=== PATIENT | female | born 1995 | race Caucasian/White ===

== ENCOUNTER 2018-04-27 05:59 | Outpatient (CLI) | payer OTHER ==
[~2018-04-27] VITALS: Ht 157.5 cm; Wt 79.4 kg
[~2018-04-27 05:59] MED LIST: OMEP20CA12 PO; ONDA4TAB8 SL; POLY119P5 PO
[2018-04-29] MEDS ORDERED: ACHD5005 PO (13:09)
== END 2018-04-27 11:15 | disposition home or self-care (01) ==
LOC: PREOP 05:59
PROVIDERS: ATTEND Surgery
DX: Z01.818 Encounter for other preprocedural examination (principal)

== ENCOUNTER 2018-04-29 10:07 | Day surgery (SDC) | payer OTHER ==
[2018-04-29] VITALS (7 sets, daily range): BP systolic 109–141; BP diastolic 77–96
[~2018-04-29] VITALS: Ht 157.5 cm; Wt 79.4 kg
[2018-04-29] MEDS: LACTATED RINGERS 1,000 ML IV PRN ×2 (10:30→12:39)
[2018-04-29] MEDS ORDERED: ceFAZolin 2 GM IV Premixed 50 ML IV ONE (10:30)
[2018-04-29] MEDS ORDERED: CATHETER FLUSH 10 ML SYR IV PRN (10:45)
--- NOTE | 2018-04-29 10:49 | Progress Note-Pre Operative ---
Pre-Operative Progress Note H&P Reviewed The H&P was reviewed, patient examined and no changes noted. Time Seen by Provider: 10:46 Date H&P Reviewed: Apr 29, 2018 Time H&P Reviewed: 10:47 Pre-Operative Diagnosis: Cholelithiasis/Cholecystitis MAGNO WILLIAM DO Apr 29, 2018 10:49
[2018-04-29] MEDS ORDERED: LIDOCAINE PF 2% 5 ML (XYLOCAINE) VIAL ONE (11:09)
[2018-04-29] MEDS ORDERED: DEXAMETHASONE 10 MG/ML (DECADRON) 1 ML VIAL ONE (11:09)
[2018-04-29] MEDS ORDERED: proPOfol 200 MG/20 ML (DIPRIVAN) VIAL IV ONE (11:09)
[2018-04-29] MEDS ORDERED: ONDANSETRON 4 MG/2 ML (SDV) Z0FRAN ONE ×2 (11:09→13:23)
[2018-04-29] MEDS ORDERED: fentaNYL INJECTION 100 MCG/2 ML AMP ONE (11:09)
[2018-04-29] MEDS ORDERED: SEVOFLURANE (ULTANE) 15 ML INHAL SOLN ONE ×3 (11:09→13:04)
[2018-04-29] MEDS ORDERED: ROCURONIUM 10 MG/ML 5 ML SYRINGE IV ONE (11:10)
[2018-04-29] MEDS ORDERED: MIDAZOLAM 2 MG/2 ML (VERSED) VIAL ONE (11:10)
[2018-04-29] MEDS ORDERED: LIDOCAINE/EPI 1%-1:200,000 (XYLOCAINE) 10 ML VIAL ONE (11:21)
[2018-04-29] MEDS ORDERED: NEOSTIGMINE 1 MG/ML 5 ML SYRINGE ONE (13:01)
[2018-04-29] MEDS ORDERED: GLYCOPYRROLATE 0.2 MG/ML (ROBINUL) 2 ML VIAL ONE (13:01)
[2018-04-29] MEDS ORDERED: ACHD5005 PO (13:09)
--- NOTE | 2018-04-29 13:09 | Progress Note-Post Operative ---
Post-Operative Progess Note Surgeon (s)/Corporate Treasury Analyst (s) Surgeon MAGNO WILLIAM DO Corporate Treasury Analyst: [place] Pre-Operative Diagnosis Cholelithiasis/Cholecystitis Post-Operative Diagnosis Same Procedure & Operative Findings Date of Procedure 04/29/18 Procedure Performed/Findings Lap yeni with IOC Anesthesia Type GET Estimated Blood Loss Estimated blood loss (mL): scant Specimens/Packing Specimens Removed GB and contents MAGNO WILLIAM DO Apr 29, 2018 13:09
--- NOTE | 2018-04-29 13:11 | Discharge Inst-Surgical ---
Discharge Inst-Surgical Depart Medication/Instructions New, Converted or Re-Newed RX: RX Given to Pt/Family Patient Instructions Follow up Appt: Make appointment for 1 week. Instructions: No lifting greater than 10 pounds. No strenuous activity. May shower in 24 hours, no tub bath or soaking. Use incentive spirometer at home as directed. No Smoking Skin/Wound Care: May remove bandages in am. You need to leave the Dermabond on over incision it will fall off on its own. Symptoms to Report: Appetite Changes, Extremity Discoloration, Numbness/Tingling, Swelling Increased , Bleeding Excessive, Eyesight Changes, Pain Increased, Urine Color Change, Constipation(Persistent), Fever over 101 degree F, Pain/Pressure in chest, Urinating Difficulty, Cough Up/Vomit Blood, Heart Beat Irreg/Pounding, Pain/ Pressure in jaw, Vaginal Bleeding Increase, Cramps in feet or legs, Lightheadedness, Pain/Pressure in shoulder, Diarrhea(Persistent), Memory Changes Suddenly, Questions/Concerns, Weight gain consecutive days, Dizziness/ Fainting, Nausea/Vomiting, Shortness of Breath, Weight gain over 2 pounds If questions or concerns contact your physician Or seek help at emergency department. Activity Activity as Tolerated: Yes Activity Instructions: Avoid Stress to Incision Driving Instructions: No Driving/Refer to Diet Discharge Diet: Avoid Fatty Foods, Low Fat/Low Cholesterol Diet After 24 Hours: Clear Liquid if Nauseous If Any Problems/Questions/Issu: Contact Your Physician, Go to Emergency Room Skin/Wound Care Infection Signs and Symptoms: Increased Redness, Foul Odor of Wound, Increased Drainage, Skin Itchy or Has a Rash, Increased Swelling, Temperature Above 101 F Wound Care Comment: heating pad to shoulder or neck for pain tonight Bathing Instructions: Shower Stitches/Aki/Dermabond Dis: Dermabond Ice Pack: Ice On and Off Site (as needed for pain) MAGNO WILLIAM DO Apr 29, 2018 13:11
[2018-04-29] MEDS ORDERED: morphine INJ 10 MG/ML 1ML (SYR OR VIAL) ONE (13:23)
[2018-04-29] MEDS ORDERED: HYDROmorphone 2 MG/ML VIAL (DILAUDID) IV ONE (13:30)
[2018-04-29] MEDS ORDERED: ONDANSETRON 4 MG/2 ML (SDV) Z0FRAN IVP PRN (13:30)
[2018-04-29] MEDS ORDERED: morphine INJ 10 MG/ML 1ML (SYR OR VIAL) IVP ONE (13:30)
[2018-04-29] MEDS ORDERED: MEPERIDINE (DEMEROL) INJ 50 MG/ML ONE (13:51)
[2018-04-29] MEDS ORDERED: MEPERIDINE (DEMEROL) INJ 50 MG/ML IVP PRN (14:00)
--- NOTE | 2018-04-29 14:22 | Anesthesia-General Post-Op ---
General Patient Condition Mental Status/LOC: Same as Preop Cardiovascular: Satisfactory Nausea/Vomiting: Absent Respiratory: Satisfactory Pain: Controlled Complications: Absent Post Op Complications Complications None Follow Up Care/Instructions Patient Instructions None needed. Anesthesia/Patient Condition Patient Condition Patient is doing well, no complaints, stable vital signs, no apparent adverse anesthesia problems. No complications reported per nursing. D/C home per [facility] [place] [facility] [place] Criteria: Yes KILLIAN ROSS CRNA Apr 29, 2018 14:22
--- OUTSIDE RECORDS SUMMARY | 2018-04-29 14:40 | XMS REPORT | Continuity of Care Document ---
Author Author [facility] Address Unknown Phone Unavailable Allergies Active Description Code Type Severity Reaction Onset Reported/Identified Relationship to Patient Clinical Status Yes No Known Drug Allergies [id number] Drug Allergy Unknown N/A 04/12/2018 Medications There is no data. Problems Date Dx Coded Attending Type Code Diagnosis Diagnosed By 05/19/2012 DAI GONZALEZ MD 477.0 ALLERGIC RHINITIS - POLLEN 05/19/2012 DAI GONZALEZ MD 796.2 Blood Pressure Isolated Elevated 05/19/2012 DAI GONZALEZ MD 477.0 ALLERGIC RHINITIS - POLLEN 05/19/2012 DAI GONZALEZ MD 796.2 Blood Pressure Isolated Elevated 05/19/2012 SHAWNEE MORTON DO 477.0 ALLERGIC RHINITIS - POLLEN 05/19/2012 SHAWNEE MORTON DO 796.2 Blood Pressure Isolated Elevated 05/19/2012 DAI GONZALEZ MD 477.0 ALLERGIC RHINITIS - POLLEN 05/19/2012 DAI GONZALEZ MD 796.2 Blood Pressure Isolated Elevated 05/19/2012 DAI GONZALEZ MD 477.0 ALLERGIC RHINITIS - POLLEN 05/19/2012 DAI GONZALEZ MD 796.2 Blood Pressure Isolated Elevated 05/19/2012 LISSETH VILLA APRN 477.0 ALLERGIC RHINITIS - POLLEN 05/19/2012 LISSETH VILLA APRN 796.2 Blood Pressure Isolated Elevated 07/24/2012 DAI GONZALEZ MD V20.2 WELL CHILD 07/24/2012 DAI GONZALEZ MD V20.2 WELL CHILD 07/24/2012 SHAWNEE MORTON DO V20.2 WELL CHILD 07/24/2012 DAI GONZALEZ MD V20.2 WELL CHILD 07/24/2012 DAI GONZALEZ MD V20.2 WELL CHILD 07/24/2012 LISSETH VILLA APRN L V20.2 WELL CHILD 03/26/2013 DAI GONZALEZ MD 461.9 SINUSITIS ACUTE 03/26/2013 DAI GONZALEZ MD 461.9 SINUSITIS ACUTE 03/26/2013 SHAWNEE MORTON DO K 461.9 SINUSITIS ACUTE 03/26/2013 DAI GONZALEZ MD 461.9 SINUSITIS ACUTE 03/26/2013 DAI GONZALEZ MD 461.9 SINUSITIS ACUTE 05/17/2013 DAI GONZALEZ MD 133.0 SCABIES 05/17/2013 DAI GONZALEZ MD 133.0 SCABIES 05/17/2013 SHAWNEE MORTON DO 133.0 SCABIES 05/17/2013 DAI GONZALEZ MD 133.0 SCABIES 05/17/2013 DAI GONZALEZ MD 133.0 SCABIES 06/29/2013 DAI GONZALEZ MD 465.9 UPPER RESPIRATORY INFECTION 06/29/2013 SHAWNEE MORTON DO K 465.9 UPPER RESPIRATORY INFECTION 06/29/2013 DAI GONZALEZ MD 465.9 UPPER RESPIRATORY INFECTION 06/29/2013 DAI GONZALEZ MD 465.9 UPPER RESPIRATORY INFECTION 03/21/2014 SHAWNEE MORTON DO K 564.00 UNSPECIFIED CONSTIPATION 03/21/2014 SHAWNEE MORTON DO K 626.4 IRREGULAR MENSTRUAL CYCLE 03/21/2014 SHAWNEE MORTON DO K V65.45 STD COUNSELING 03/21/2014 DAI GONZALEZ MD 564.00 UNSPECIFIED CONSTIPATION 03/21/2014 DAI GONZALEZ MD 626.4 IRREGULAR MENSTRUAL CYCLE 03/21/2014 DAI GONZALEZ MD V65.45 STD COUNSELING 03/21/2014 DAI GONZALEZ MD 564.00 UNSPECIFIED CONSTIPATION 03/21/2014 DAI GONZALEZ MD 626.4 IRREGULAR MENSTRUAL CYCLE 03/21/2014 DAI GONZALEZ MD V65.45 STD COUNSELING 05/12/2014 DAI GONZALEZ MD 462 PHARYNGITIS 05/12/2014 DAI GONZALEZ MD 462 PHARYNGITIS 05/17/2014 DAI GONZALEZ MD 784.91 Postnasal Drip Procedures Code Description [place] [address] TEST, URINE (IN- HOUSE) 03/21/2014 12335 TRICHOMONAS (IN-HOUSE) 03/21/2014 76617 GC/CHLAM PROBE (STATE) 03/21/2014 54306 STREP A (IN-HOUSE) 05/12/2014 Results There is no data. Encounters ACCT No. Visit Date/Time Discharge Status Pt. Type Provider Facility Loc./Unit Complaint [id number] 05/17/2014 15:29:00 05/17/2014 23:59:59 CLS Outpatient DAI GONZALEZ MD [id number] 05/12/2014 13:40:00 05/12/2014 23:59:59 CLS Outpatient DAI GONZALEZ MD [id number] 03/21/2014 17:05:00 03/21/2014 23:59:59 CLS Outpatient SHAWNEE MORTON DO [id number] 06/29/2013 16:15:00 06/29/2013 23:59:59 CLS Outpatient DAI GONZALEZ MD [id number] 05/17/2013 15:35:00 05/17/2013 23:59:59 [place] [id number] 07/24/2012 09:29:00 07/24/2012 23:59:59 CLS Outpatient LISSETH VILLA APRN [id number] 09/26/2017 14:20:00 09/26/2017 23:59:59 CLS Outpatient HENRIQUE GHOTRA [facility] [id number] 04/12/2018 08:55:00 04/12/2018 11:55:00 DIS Emergency ROSANGELA WAGONER, TAN Rivera [facility] ER JOLLEY,ABD PAIN
--- NOTE | 2018-04-29 19:06 | Diagnostic Imaging Report ---
INDICATION: Fluoroscopy for intraoperative cholangiogram. EXAMINATION: Fluoroscopy was provided in the OR during intraoperative cholangiogram. 6 seconds of fluoroscopy was utilized. FINDINGS: Images demonstrate injection of contrast via the cystic duct remnant. Intrahepatic and extrahepatic bile ducts are not dilated. There is free flow of contrast into the duodenum. No filling defects are seen. IMPRESSION: Fluoroscopy for intraoperative cholangiogram. Dictated by: Dictated on workstation # [id number]
--- NOTE | 2018-04-30 02:55 | OPERATIVE REPORT ---
DATE OF SERVICE: 04/29/2018 PREOPERATIVE DIAGNOSES: Cholelithiasis, cholecystitis. POSTOPERATIVE DIAGNOSES: Cholelithiasis, cholecystitis. PROCEDURE: Laparoscopic cholecystectomy, intraoperative cholangiogram. SURGEON: Horacio Arriola DO. FINANCIAL ASSOCIATE: Peter Jacques DO. ANESTHESIA: General endotracheal tube. SPECIMEN: Gallbladder and contents. BLOOD LOSS: Scant. FLUIDS: Per anesthesia. POSTOPERATIVE CONDITION: Stable. INDICATION FOR PROCEDURE: The patient is a 23-year-old female who has been having right upper quadrant pain associated with fried and fatty foods and had ultrasound which showed stones, signs indicating cholecystitis. FINDINGS: The patient had some minimal adhesions to the lower portion of the gallbladder. No other obvious pathology. PROCEDURE NOTE: After informed consent was obtained, the patient was brought to the operating room, placed on the table in supine position. She was then sterilely prepped and draped in normal fashion. Local lidocaine was used to infiltrate the skin above the umbilicus. I then made an incision with #11 blade, carried down through the skin into the subcutaneous tissue, then deepened down to subcutaneous tissue with Bovie electrocautery down to the fascia. Fascia incised with Bovie electrocautery. Bluntly entered the abdomen, swept the finger around, placed 0 Vicryl [id number] suture, then placed an 11 mm trocar port under direct visualization, created pneumoperitoneum and then placed 3 more ports in normal fashion using local lidocaine, 11-blade for stab incision and VersaStep system, all done under direct visualization, one in subxiphoid and two in right upper quadrant. The patient then placed in reverse Trendelenburg and rotated to left, able to visualize the gallbladder, grasped at the fundus and taken in superior direction, then grasped down the Cecille's pouch and pulled in inferolateral direction, started dissecting out the cystic duct and cystic artery. I was able to get around the cystic duct down the cystic artery. Placed 1 clip distally on the cystic duct and one distally and two proximally on the cystic artery. Cut the cystic duct fpc through Metzenbaum scissors. Placed cholangiogram catheter and shot a cholangiogram. Good spillage of dye down the common bile duct into the small intestine as well as up in the common hepatic and right and left hepatics. Removed the cholangiogram catheter, placed 2 clips proximally on the cystic duct and cut the cystic duct and cystic artery with Metzenbaum scissors. Removed the gallbladder from bed of liver with L-hook cautery. Did get into the gallbladder with some spillage of bile. Once this was completely removed, I then placed a bag in the abdomen, placed the gallbladder in the bag and then removed through the supraumbilical incision. Placed the port back into the abdomen, copiously irrigated with normal saline, suctioned this out. There was no bleeding in the bed of liver, irrigated some more and suctioned this out. I then placed the patient supine, removed all ports under direct visualization, allowed pneumoperitoneum to escape. Closed the supraumbilical incision, closing the fascia with 0 Vicryl suture previously placed. Copiously irrigated all incisions with normal saline, closing the 3 small 5 mm incisions with a single interrupted 4-0 undyed Monocryl subcuticular stitch. Closed the supraumbilical incision with 3 interrupted 4-0 undyed Monocryl subcuticular stitches. Area was cleaned and dried and Dermabond placed as well as Band-Aids. The patient was then transferred to recovery room in stable condition. Sponge, instrument and needle count correct at the end of the case. Dr. Jacques assisted in this case helping to make incisions, closed the incisions, hold the anatomy out of the way and identified anatomy. Job ID: [id number] DocumentID: [id number] Dictated Date: 04/30/2018 00:45:53 Harness Placer Date: 04/30/2018 02:55:06 Dictated By: DO ELVIRA DOHERTY
== END 2018-04-29 17:55 | disposition home or self-care (01) ==
LOC: SDC 10:07
PROVIDERS: ATTEND Surgery
DX: K80.10 Calculus of gallbladder with chronic cholecystitis without obstruction (principal); K21.9 Gastro-esophageal reflux disease without esophagitis
CPT/HCPCS: 84703; 87081; 88304; 94664

== ENCOUNTER 2018-05-05 21:29 | Emergency (ER) | payer OTHER ==
[~2018-05-05] VITALS: Ht 157.5 cm; Wt 79.4 kg
[~2018-05-05 21:29] MED LIST changes: +ACHD5005 PO
--- OUTSIDE RECORDS SUMMARY | 2018-05-05 21:34 | XMS REPORT | Continuity of Care Document ---
Author Author [facility] Address Unknown Phone Unavailable Allergies Active Description Code Type Severity Reaction Onset Reported/Identified Relationship to Patient Clinical Status Yes No Known Drug Allergies [id number] Drug Allergy Unknown N/A 04/12/2018 Medications There [...] MD 133.0 SCABIES 05/17/2013 SHAWNEE MORTON DO K 133.0 SCABIES 05/17/2013 DAI GONZALEZ MD 133.0 [...] DO K 626.4 IRREGULAR MENSTRUAL CYCLE 03/21/2014 LINDA MORTON DOA K V65.45 STD COUNSELING 03/21/2014 DAI GONZALEZ [...] 05/17/2014 DAI GONZALEZ MD 784.91 Postnasal Drip 04/12/2018 ROSANGELA WAGONER, TAN Rivera Ot K59.00 CONSTIPATION, UNSPECIFIED 04/12/2018 TAN ADAMES MD Ot K80.20 CALCULUS OF GALLBLADDER W/O CHOLECYSTITI 04/12/2018 TAN ADAMES MD Ot R10.84 GENERALIZED ABDOMINAL PAIN 04/12/2018 TAN ADAMES MD, Ot R11.2 NAUSEA WITH VOMITING, UNSPECIFIED 04/12/2018 TAN ADAMES MD Ot R51 HEADACHE 04/27/2018 MAGNO WILLIAM DO, Ot Z01.818 ENCOUNTER FOR OTHER PREPROCEDURAL EXAMIN 04/29/2018 MAGNO WILLIAM DO Ot K21.9 GASTRO-ESOPHAGEAL REFLUX DISEASE WITHOUT 04/29/2018 MAGNO WILLIAM DO Ot K80.10 CALCULUS OF GALLBLADDER W CHRONIC CHOLEC 05/05/2018 MAGNO WILLIAM DO, Ot K21.9 GASTRO-ESOPHAGEAL REFLUX DISEASE WITHOUT 05/05/2018 MAGNO WILLIAM DO Ot K80.10 CALCULUS OF GALLBLADDER W CHRONIC CHOLEC Procedures Code Description [place] [address] TEST, URINE (IN- HOUSE) 03/21/2014 49011 TRICHOMONAS (IN-HOUSE) 03/21/2014 82239 GC/CHLAM PROBE ([facility]) 03/21/2014 21777 STREP A (IN-HOUSE) 05/12/2014 Results Test Result Range Urine beta human chorionic gonadotropin (hCG) measurement - 04/29/18 10:15 Urine beta human chorionic gonadotropin (hCG) measurement NEGATIVE NEGATIVE Methicillin resistant Staphylococcus aureus (MRSA) screening culture - 10:20 Methicillin resistant Staphylococcus aureus (MRSA) screening culture NEG NRG Encounters ACCT No. Visit Date/Time Discharge Status Pt. Type Provider Facility Loc./Unit Complaint [id number] 05/17/2014 15:29:00 05/17/2014 23:59:59 CLS Outpatient DAI GONZALEZ MD [id number] 05/12/2014 13:40:00 05/12/2014 23:59:59 CLS Outpatient DAI GONZALEZ MD [id number] 03/21/2014 17:05:00 03/21/2014 23:59:59 CLS Outpatient SHAWNEE MORTON DO [id number] 06/29/2013 16:15:00 06/29/2013 23:59:59 CLS Outpatient DAI GONZALEZ MD [id number] 05/17/2013 15:35:00 05/17/2013 23:59:59 CLS Outpatient CARLOS WAGONER, DAI Villa [id number] 07/24/2012 09:29:00 07/24/2012 23:59:59 CLS Outpatient LISSETH VILLA APRN oRlan [id number] 09/26/2017 14:20:00 09/26/2017 23:59:59 CLS Outpatient HENRIQUE GHOTRA [facility] [id number] 04/27/2018 05:59:00 04/27/2018 11:15:00 DIS Outpatient MAGNO WILLIAM DO [facility] PREOP GALLSTONES [id number] 04/12/2018 08:55:00 04/12/2018 11:55:00 DIS Emergency ROSANGELA WAGONER, TAN Rivera [facility] ER JOLLEY,ABD PAIN [id number] 05/05/2018 21:31:00 ACT Emergency WILMER JOE DO [facility] ER HARD TIME BREATHING, SHARP PAIN UNDER BREAST [id number] 04/29/2018 12:00:00 PEN Preadmit MAGNO WILLIAM DO [facility] SDC GALLSTONES
[2018-05-05 22:03] LABS: BASOPHILS % (AUTO) 0 % (0-10); EOSINOPHILS # (AUTO) 0.1 10^3/uL (0.0-0.3); EOSINOPHILS % (AUTO) 1 % (0-10); HEMATOCRIT 40 % (35-52); HEMOGLOBIN 14.2 G/DL (11.5-16.0); LYMPHOCYTES # (AUTO) 2.8 X 10^3 (1.0-4.0); LYMPHOCYTES % (AUTO) 26 % (12-44); MEAN CORPUSCULAR HEMOGLOBIN 32 PG (25-34); MEAN CORPUSCULAR HGB CONC 36 G/DL (32-36); MEAN CORPUSCULAR VOLUME 89 FL (80-99); MEAN PLATELET VOLUME 9.8 FL (7.4-10.4); MONOCYTES # (AUTO) 0.7 X 10^3 (0.0-1.0); MONOCYTES % (AUTO) 6 % (0-12); NEUTROPHILS % (AUTO) 66 % (42-75); PLATELET COUNT 435 10^3/uL (130-400); RED BLOOD COUNT 4.47 10^6/uL (4.35-5.85); RED CELL DISTRIBUTION WIDTH 11.6 % (10.0-14.5); WHITE BLOOD COUNT 10.5 10^3/uL (4.3-11.0)
[2018-05-05 22:22] LABS: ALANINE AMINOTRANSFERASE 75 U/L (0-55); ALBUMIN 4.5 GM/DL (3.2-4.5); ALKALINE PHOSPHATASE 99 U/L (40-136); AMYLASE 26 U/L (25-125); BILIRUBIN,TOTAL 0.8 MG/DL (0.1-1.0); BUN/CREATININE RATIO 9; CARBON DIOXIDE 19 MMOL/L (21-32); CHLORIDE 104 MMOL/L (98-107); CREATININE SERUM 0.74 MG/DL (0.60-1.30); GFR ESTIMATED > 60; GLUCOSE 100 MG/DL (70-105); LIPASE 21 U/L (8-78); MAGNESIUM 2.3 MG/DL (1.8-2.4); POTASSIUM 3.8 MMOL/L (3.6-5.0); SODIUM 136 MMOL/L (135-145); TOTAL PROTEIN 7.6 GM/DL (6.4-8.2)
[2018-05-05 22:31] LABS: MYOGLOBIN SERUM 22.4 NG/ML (10.0-92.0)
[2018-05-05 22:39] LABS: BILIRUBIN,URINE NEGATIVE (NEGATIVE); CLARITY,URINE CLEAR; COLOR,URINE YELLOW; GLUCOSE, URINE (UA) NEGATIVE (NEGATIVE); KETONES,URINE NEGATIVE (NEGATIVE); LEUKOCYTE ESTERASE ,URINE NEGATIVE (NEGATIVE); NITRITE,URINE NEGATIVE (NEGATIVE); PH,URINE 7 (5-9); PROTEIN,URINE NEGATIVE (NEGATIVE); UROBILINOGEN,URINE NORMAL (NORMAL)
[2018-05-05 22:50] LABS: BACTERIA,URINE MODERATE /HPF; RBC,URINE RARE /HPF
[2018-05-05] MEDS ORDERED: IOHEXOL 350 MG/ML 100 ML (OMNIPAQUE 350) VIAL IV ONE (23:00)
[2018-05-05] MEDS ORDERED: NS 100 ML (IVPB) BAG IV ONE (23:00)
[2018-05-05 23:06] LABS: AMPHETAMINE SCREEN, URINE NEGATIVE (NEGATIVE); BARBITURATE SCREEN URINE NEGATIVE (NEGATIVE); BENZODIAZEPINES SCREEN URINE NEGATIVE (NEGATIVE); CANNABINOID SCREEN, URINE NEGATIVE (NEGATIVE); COCAINE SCREEN URINE NEGATIVE (NEGATIVE); METHADONE STAT NEGATIVE (NEGATIVE); METHAMPHETAMINE SCREEN URINE S NEGATIVE (NEGATIVE); OPIATE SCREEN URINE POSITIVE (NEGATIVE); OXYCODONE STAT NEGATIVE (NEGATIVE); PROPOXYPHENE STAT NEGATIVE (NEGATIVE); TRICYCLIC ANTIDEPRESSANTS SCRE NEGATIVE (NEGATIVE)
[2018-05-05] MEDS ORDERED: KETOROLAC 30 MG/ML VIAL IVP STA (23:51)
[2018-05-05] MEDS ORDERED: CEFD300C3 PO (23:55)
--- NOTE | 2018-05-05 23:56 | ED General ---
General Chief Complaint: Respiratory Problems Stated Complaint: HARD TIME BREATHING, SHARP PAIN UNDER BREAST Nursing Triage Note: Patient ambulatory to ER, CAOx 4, complaining of pain to under right breast while taking a deep breath and shortness of breath. Patient states she had her gallbladder removed by Dr. Arriola on and has been having the pain ever since . Pain is intermittent. Surgical incisions have no redness present and no drainage and appear to be healing appropriately. Nursing Sepsis Screen: No Definite Risk Source of Information: Patient (SOMEWHAT LIMITED HISTORIAN, SEEMS SOMEWHAT LIMITED INTELLECT AND TALKS "BABY TALK" ) History of Present Illness Date Seen by Provider: May 05, 2018 Time Seen by Provider: 21:50 Initial Comments PT ARRIVES VIA POV FROM HOME C/O RUQ PAIN STATES IT HURTS TO TAKE A DEEP BREATH--STATES "CAN'T BREATHE OK" PT HAD LAP CHOLECYSTECTOMY BY DR. ARRIOLA ON Thursday04/29/18 PT STATES SHE HAS HAD THIS PAIN SINCE SHE WOKE UP FROM SURGERY, THEN LATER STATES SHE WENT HOME AFTER SURGERY, AND WENT TO SLEEP AND WOKE UP THE NEXT DAY AND HAD THIS PAIN PT STATES PAIN COMES AND GOES AND THINKS IT'S GETTING BETTER PT STATES "WHEN THE PAIN COMES I BREATHE THROUGH IT, BUT THIS TIME I COULDN'T TAKE A DEEP BREATH ALL THE WAY" --WAS SOMETIME TODAY, CANNOT STATE WHEN THIS WAS. IS NOT OCCURRING NOW PT STATES SHE HAS RAN OUT OF HER PAIN MEDICATION YESTERDAY, AND STATES IT DID NOT HELP AT ALL C/O MILD NAUSEA,, NO VOMITING NO FEVER NO URINARY SYMPTOMS STATES SHE IS EATING A LITTLE--LAST FOOD INTAKE WAS AT 1500 TODAY WHEN SHE ATE A HOT POCKET SANDWICH AND HAD SOUP. STATES SHE IS DRINKING WELL AND VOIDING A NORMAL AMOUNT LMP 04/06/18. NORMAL. STATES SHE USUALLY SKIPS A MONTH. NO CONTROL DR. ARRIOLA CALLED PRIOR TO PT'S ARRIVAL AND INFORMED THAT PT WOULD BE COMING TO ER FOR EVALUATION. PCP: [facility] SURGEON: DR. ARRIOLA Allergies and Home Medications Allergies Coded Allergies: No Known Drug Allergies (Unverified , 04/12/18) Home Medications Cefdinir 300 Mg Capsule, 300 MG PO BID Prescribed by: WILMER JOE on 05/05/18 2325 Hydrocodone Bit/Acetaminophen 1 Tab Tab, 1 TAB PO Q6H PRN Prescribed by: MAGNO ARRIOLA on 04/29/18 1309 Omeprazole 20 Mg Capsule.dr, 20 MG PO DAILY Prescribed by: TAN FRYE on 04/12/18 1140 Patient Home Medication List Home Medication List Reviewed: Yes Review of Systems Review of Systems Constitutional: no symptoms reported; No chills, No diaphoresis, No fever Respiratory: see HPI; No cough, No short of breath Cardiovascular: see HPI (PAIN TO RIGHT LOWER RIB AREA--AT SITE OF SURGERY) Gastrointestinal: see HPI, abdominal pain; No constipation, No diarrhea, No nausea, No vomiting Genitourinary: no symptoms reported Past Zzrqmbo-Mntice-Tkhxnj Hx Patient Social History Alcohol Use: Denies Use Recreational Drug Use: No Smoking Status: Never a Smoker 2nd Hand Smoke Exposure: No Recent Foreign Travel: No Contact w/Someone Who Travel: No Recent Infectious Disease Expo: No Recent Hopitalizations: Yes (gallbladder removed on 04/28/18) Physical Abuse: No Sexual Abuse: No Mistreated: No Fear: No Immunizations Up To Date PED Vaccines UTD: Yes Seasonal Allergies Seasonal Allergies: No Past Medical History Surgeries: Yes Gallbladder Respiratory: No Cardiac: No Neurological: No Last Menstrual Period: Apr 15, 2018 Genitourinary: No Gastrointestinal: No Gall Bladder Disease Musculoskeletal: No Endocrine: No HEENT: No Cancer: No Psychosocial: No Integumentary: No Physical Exam Vital Signs Vital Signs - First Documented 05/05/18 05/06/18 21:40 01:35 Temp 98.5 Pulse 114 Resp 19 B/P (MAP) 133/87 (102) Pulse Ox 100 O2 Delivery Room Air Capillary Refill : Less Than 3 Seconds Height, Weight, BMI Height: 5'2.00" Weight: 175lbs. 0.0oz. 79.411862os; 32.0 BMI Method:Stated General Appearance: No Apparent Distress HEENT: No Scleral Icterus (L), No Scleral Icterus (R); Other (ORAL MUCOSA MOIST ) Neck: Normal Inspection Respiratory: Normal Breath Sounds, No Accessory Muscle Use, No Respiratory Distress, Other (RIGHT LOWER ANTERIOR RIBS VERY TENDER TO PALPATION--REPRODUCES PAIN ) Cardiovascular: Regular Rate, Rhythm, No Edema, No JVD, No Murmur, Normal Peripheral Pulses Gastrointestinal: Normal Bowel Sounds, No Organomegaly, No Pulsatile Mass, Soft , Tenderness (HAS DIFFUSE TENDERNESS, BUT IS MOST TENDER IN RUQ IN AREA OF SURGERY. SURGICAL INCISIONS ARE ALL CLEAN/DRY/INTACT WITH WOUND ADHESIVE INTACT. NO SIGNS OF INFECTION) Back: Normal Inspection, No CVA Tenderness Extremity: Normal Capillary Refill, Normal Inspection, Normal Range of Motion, Non Tender, No Calf Tenderness, No Pedal Edema Neurologic/Psychiatric: Alert, Oriented x3, No Motor/Sensory Deficits, provisioning analyst II- XII Norm as Tested Skin: Normal Color, Warm/Dry Progress/Results/Core Measures Suspected Sepsis Recent Fever Within 48 Hours: No Infection Criteria Present: None New/Unexplained Altered Menta: No Sepsis Screen: No Definite Risk SIRS Temperature:98.5 Pulse: 114 Respiratory Rate: Laboratory Tests 05/05/18 21:52: White Blood Count 10.5 Blood Pressure 133 /87 Mean: 102 Laboratory Tests 05/05/18 21:52: Creatinine 0.74, INR Comment 1.0, Platelet Count 435H, Total Bilirubin 0.8 Results/Orders Lab Results Laboratory Tests Test 05/05/18 21:52 05/05/18 22:20 Range/Units White Blood Count 10.5 4.3-11.0 10^3/uL Red Blood Count 4.47 4.35-5.85 10^6/uL Hemoglobin 14.2 11.5-16.0 G/DL Hematocrit 40 35-52 % Mean Corpuscular Volume 89 80-99 FL Mean Corpuscular Hemoglobin 32 25-34 PG Mean Corpuscular Hemoglobin Concent 36 32-36 G/DL Red Cell Distribution Width 11.6 10.0-14.5 % Platelet Count 435 H 130-400 10^3/uL Mean Platelet Volume 9.8 7.4-10.4 FL Neutrophils (%) (Auto) 66 42-75 % Lymphocytes (%) (Auto) 26 12-44 % Monocytes (%) (Auto) 6 0-12 % Eosinophils (%) (Auto) 1 0-10 % Basophils (%) (Auto) 0 0-10 % Neutrophils # (Auto) 7.0 1.8-7.8 X 10^3 Lymphocytes # (Auto) 2.8 1.0-4.0 X 10^3 Monocytes # (Auto) 0.7 0.0-1.0 X 10^3 Eosinophils # (Auto) 0.1 0.0-0.3 10^3/uL Basophils # (Auto) 0.0 0.0-0.1 10^3/uL Prothrombin Time 13.0 12.2-14.7 SEC INR Comment 1.0 0.8-1.4 Activated Partial Thromboplast Time 30 24-35 SEC Sodium Level 136 135-145 MMOL/L Potassium Level 3.8 3.6-5.0 MMOL/L Chloride Level 104 98-107 MMOL/L Carbon Dioxide Level 19 L 21-32 MMOL/L Anion Gap 13 5-14 MMOL/L Blood Urea Nitrogen 7 7-18 MG/DL Creatinine 0.74 0.60-1.30 MG/DL Estimat Glomerular Filtration Rate > 60 BUN/Creatinine Ratio 9 Glucose Level 100 70-105 MG/DL Calcium Level 10.0 8.5-10.1 MG/DL Corrected Calcium 9.6 8.5-10.1 MG/DL Magnesium Level 2.3 1.8-2.4 MG/DL Total Bilirubin 0.8 0.1-1.0 MG/DL Aspartate Amino Transf (AST/SGOT) 25 5-34 U/L Alanine Aminotransferase (ALT/SGPT) 75 H 0-55 U/L Alkaline Phosphatase 99 40-136 U/L Myoglobin 22.4 10.0-92.0 NG/ML Troponin I < 0.30 <0.30 NG/ML B-Type Natriuretic Peptide < 10.0 <100.0 PG/ML Total Protein 7.6 6.4-8.2 GM/DL Albumin 4.5 3.2-4.5 GM/DL Amylase Level 26 25-125 U/L Lipase 21 8-78 U/L Serum Test, Qualitative NEGATIVE NEGATIVE Urine Color YELLOW Urine Clarity CLEAR Urine pH 7 5-9 Urine Specific [place] 1.005 L 1.016-1.022 Urine Protein NEGATIVE NEGATIVE Urine Glucose (UA) NEGATIVE NEGATIVE Urine Ketones NEGATIVE NEGATIVE Urine Nitrite NEGATIVE NEGATIVE Urine Bilirubin NEGATIVE NEGATIVE Urine Urobilinogen NORMAL NORMAL MG/DL Urine Leukocyte Esterase NEGATIVE NEGATIVE Urine RBC (Auto) NEGATIVE NEGATIVE Urine RBC RARE /HPF Urine WBC NONE /HPF Urine Crystals NONE /LPF Urine Bacteria MODERATE H /HPF Urine Casts NONE /LPF Urine Mucus NEGATIVE /LPF Urine Culture Indicated NO Urine Opiates Screen POSITIVE H NEGATIVE Urine Oxycodone Screen NEGATIVE NEGATIVE Urine Methadone Screen NEGATIVE NEGATIVE Urine Propoxyphene Screen NEGATIVE NEGATIVE Urine Barbiturates Screen NEGATIVE NEGATIVE Ur Tricyclic Antidepressants Screen NEGATIVE NEGATIVE Urine Phencyclidine Screen NEGATIVE NEGATIVE Urine Amphetamines Screen NEGATIVE NEGATIVE Urine Methamphetamines Screen NEGATIVE NEGATIVE Urine Benzodiazepines Screen NEGATIVE NEGATIVE Urine Cocaine Screen NEGATIVE NEGATIVE Urine Cannabinoids Screen NEGATIVE NEGATIVE My Orders Orders - WILMER JOE DO Cbc With Automated Diff (05/05/18 21:52) Magnesium (05/05/18 21:52) Ekg Tracing (05/05/18 21:52) Cardiac Profile 1 (05/05/18 21:52) Comprehensive Metabolic Panel (05/05/18 21:52) Myoglobin Serum (05/05/18 21:52) Protime With Inr (05/05/18 21:52) Partial Thromboplastin Time (05/05/18:52) O2 (05/05/18:52) Monitor-Rhythm Ecg Trace Only (05/05/18:52) Saline Lock/Iv-Start (05/05/18 21:52) Lipase (05/05/18 21:52) Amylase (05/05/18 21:52) BNP (05/05/18 21:52) Hcg,Qualitative Serum (05/05/18 21:52) Ua Culture If Indicated (05/05/18 21:52) Chest Pa/Lat (2 View) (05/05/18 21:52) Drug Screen Stat (Urine) (05/05/18 22:21) Ct Adriana Chest/Noang Abd-Pelv W (05/05/18 22:33) Iohexol Injection (Omnipaque 350 Mg/Ml 1 (05/05/18 23:00) Ns (Ivpb) (Sodium Chloride 0.9% Ivpb Bag (05/05/18 23:00) Ketorolac Injection (Toradol Injection) (05/05/18 23:51) Ceftriaxone For Iv Use (Rocephin For I (05/06/18 00:00) Rx-Hydrocodone/Apap 5-325 Mg (Rx-Vicodin (05/06/18 00:00) Incentive Spirometry Initial (05/05/18 23:56) Incentive Spirometry (Nursing) Q2H (05/05/18 23:56) Rx-Tramadol Hcl (Rx-Ultram) (05/06/18 00:16) Medications Given in ED Current Medications Medications Dose Ordered Sig/Sandra Route Start Time Stop Time Status Last Admin Dose Admin Ceftriaxone Sodium 1000 mg/ Sodium Chloride 60 ml @ 100 mls/hr ONCE ONCE IV 05/06/18 00:00 05/06/18 00:35 DC 05/06/18 00:13 100 MLS/HR Iohexol 100 ml ONCE ONCE IV 05/05/18 23:00 05/05/18 23:49 DC 05/05/18 22:52 100 ML Sodium Chloride 80 ml ONCE ONCE IV 05/05/18 23:00 05/05/18 23:49 DC 05/05/18 22:52 80 ML Vital Signs/I&O 05/05/18 05/06/18 21:40 01:35 Temp 98.5 98.5 Pulse 114 114 Resp 19 B/P (MAP) 133/87 (102) 133/87 (102) Pulse Ox 100 O2 Delivery Room Air Capillary Refill : Less Than 3 Seconds Blood Pressure Mean: 102 Progress Note : Progress Note PAIN IMPROVED AT DISMISSAL. UNEVENTFUL ER STAY ECG Initial ECG Impression Date: May 05, 2018 Initial ECG Impression Time: 22:09 Initial ECG Rate: 84 Initial ECG Rhythm: Normal Sinus Diagnostic Imaging Comments CXR--NO ACUTE PROCESS, PENDING RADIOLOGIST REVIEW CT CHEST ANGIO/ABDOMEN AND PELVIS--FAINT POSTERIOR RUL PNEUMONITIS, NO P.E. NORMAL POST OP APPEARANCE; 4 X 3 CM LEFT ADNEXAL CYSTIC MASS. PER [facility] VIA FAX @ [phone] Reviewed: Reviewed by Me Departure Communication (Admissions) [id number]--SPOKE WITH DR. ARRIOLA AND REVIEWED TEST RESULTS. WILL START PT ON ANTIBIOTICS AND HE WILL SEE IN OFFICE TOMORROW SCHEDULED AND HE WILL PRESCRIBE ANY ADDITIONAL PAIN MEDICATION, IF NECESSARY Impression Primary Impression: Post-operative pain Additional Impression: MILD RUL PNEUMONITIS Disposition: HOME, SELF-CARE Condition: Improved Departure-Patient Inst. Referrals: MAGNO ARRIOLA DO NO,LOCAL PHYSICIAN (PCP) Primary Care Physician Patient Instructions: Coughing and Deep Breathing After Surgery, How to Use an Incentive Spirometer, Managing Pain After Surgery, Pneumonia, Adult (DC), Postoperative Pain (DC) Add. Discharge Instructions: CONTINUE ALL YOUR PREVIOUS POST OP INSTRUCTIONS USE INCENTIVE SPIROMETRY EVERY HOUR WHILE AWAKE FOLLOW UP WITH DR. ARRIOLA TOMORROW SCHEDULED All discharge instructions reviewed with patient and/or family. Voiced understanding. Scripts Cefdinir (Cefdinir) 300 Mg Capsule 300 MG PO BID for FOR INFECTION, #20 CAP Prov: WILMER JOE DO 05/05/18 WILMER JOE DO May 05, 2018 23:56
[2018-05-06] MEDS ORDERED: cefTRIAXone FOR IV USE 1,000 MG in NS (IVPB) 50 ML IV ONE ×2
[2018-05-06] MEDS ORDERED: RX-HYDROCODONE/APAP 5/325 MG #4 TAB PK PO ONE
[2018-05-06] MEDS ORDERED: RX-TRAMADOL 50 MG (ULTRAM) TAB PPK#4 PO STA (00:16)
[2018-05-06 01:35] VITALS: BP 133/87
--- NOTE | 2018-05-06 08:04 | Diagnostic Imaging Report ---
INDICATION: Chest pain PA and lateral views of the chest are obtained. FINDINGS: Heart size and pulmonary vascularity are within normal limits, and the lungs are clear, bilaterally. There is mild pectus excavatum. IMPRESSION: Unremarkable chest. Dictated by: Dictated on workstation # [id number]
--- NOTE | 2018-05-06 09:24 | Diagnostic Imaging Report ---
INDICATION: Recent cholecystectomy. Chest pain. COMPARISON: None. TECHNIQUE: CTA of the chest was performed. Contrast bolus was time for optimal opacification of arterial structures. Multiplanar and 3-D reformats were also performed and reviewed. Additionally, routine postcontrast CT of the abdomen and pelvis was performed. FINDINGS: CTA chest: There is no evidence of acute pulmonary embolus to the first subsegmental division of the pulmonary arteries. Heart size is within normal limits. There is no large pericardial effusion. No pathologically enlarged or morphologically abnormal adenopathy is seen within the mediastinum, kinjal, nor axilla. Lung windows show no pleural effusion, nor pneumothorax. There is a 3 mm subpleural micronodule within the lateral margins of the right lower lobe. Slightly inferior and posterior to this, there is an additional 7 mm groundglass micronodular density (image 80, series 2). A few other ill-defined groundglass nodular densities are also noted scattered throughout the superior segment of the right lower lobe as well as the posterior margins of the right upper lobe (image 46, series 2). Otherwise, no focal consolidation is seen. Bony structures show no acute abnormalities. CT ABDOMEN: Normal appendix is identified. Small bowel loops are nondistended. The kidneys, adrenal glands, spleen, pancreas, and liver have a normal CT appearance. Patient is status post recent cholecystectomy. There is small amount of free fluid within the gallbladder fossa. There is no loculated air-fluid collection to suggest abscess within the abdomen. There is no free air. There is also some mild stranding of the supraumbilical fat, also likely related to previous surgery. No abnormal mesenteric or retroperitoneal adenopathy is seen. Bony structures show no acute abnormalities. CT PELVIS: Large left ovarian cyst is identified and measures 3.9 x 2.7 cm. Mild free fluid is also noted within the pelvis. There is no loculated air-fluid collection to suggest abscess. There is no free air. No abnormal adenopathy is seen. Urinary bladder is grossly unremarkable. Bony structures show no acute abnormalities. IMPRESSION: 1. No acute pulmonary embolus. 2. Scattered groundglass densities throughout the right upper and right lower lobes. Findings are nonspecific, but could be on the basis of infiltrate. Clinical correlation recommended. 3. Additional subpleural 3 mm micronodule in the right lower lobe. Patient is presumed a low-risk due to age. No further followup may be indicated. If patient is considered high-risk, one-year followup could be performed to ensure stability. 4. Moderate left ovarian cysts with mild free fluid within the pelvis; likely physiologic. 5. Status post cholecystectomy. Again, small amount of free fluid is noted within the gallbladder fossa, there is no loculated air-fluid collection to suggest abscess. Dictated by: Dictated on workstation # [id number]
== END 2018-05-06 01:36 | disposition home or self-care (01) ==
LOC: EDUNIT# 21:29 → ER 21:31
DX: G89.29 Other chronic pain (principal); R10.11 Right upper quadrant pain; J18.1 Lobar pneumonia, unspecified organism; Z90.89 Acquired absence of other organs; Z90.49 Acquired absence of other specified parts of digestive tract; Z87.448 Personal history of other diseases of urinary system
CPT/HCPCS: 36415; 71046; 71275; 74177; 80053; 80306; 81000; 82150; 83690; 83735; 83874; 83880; 84484; 84703; 85025; 85610; 85730; 93005; 96365; 96375